=== PATIENT | female | born 1970 | race Caucasian/White ===

== ENCOUNTER → 2017-07-22 | Outpatient (CLI) | payer BC ==
--- NOTE | 2017-07-25 11:35 | MM ---
Reason for exam: screening (asymptomatic). Last mammogram was performed 1 year and 1 month ago. History: Benign stereotactic core biopsy of the left breast, 2014. Physical Findings: A clinical breast exam by your physician is recommended on an annual basis and results should be correlated with mammographic findings. MG 3D Screening Mammo W/Cad Bilateral CC and MLO view(s) were taken. Prior study comparison: July 01, 2016, bilateral MG screening mammo w CAD. May 06, 2015, mammogram, performed at [facility]. The breast tissue is heterogeneously dense. This may lower the sensitivity of mammography. Previous mammotome biopsy in the left breast. There is chronic nodularity bilaterally. There is no dominant lesion. No significant changes when compared with prior studies. ASSESSMENT: Benign, BI-RAD 2 RECOMMENDATION: Routine screening mammogram of both breasts in 1 year.
== END | disposition home or self-care (01) ==
LOC: RADMAMWWP 16:37
PROVIDERS: ATTEND Family Medicine
DX: Z12.31 Encounter for screening mammogram for malignant neoplasm of breast (principal)
CPT/HCPCS: 77063; 77067

== ENCOUNTER → 2017-08-30 | Outpatient (CLI) | payer BC ==
--- NOTE | 2017-08-31 01:05 | WWHP ---
[facility] - HISTORY AND PHYSICAL CHIEF COMPLAINT: The patient is here for her routine gynecologic exam. HPI: This is a 47-year-old, G2, P2, with an LMP of 08/12/2017. Her is status post vasectomy. Her menses are regular about every 24 to 28 days and are lasting 5 to 6 days. Her last pelvic exam was about 8 years ago. She does have a history of uterine fibroids and does have occasional pelvic pressure. She states she was diagnosed with fibroids about 8 years ago. PAST MEDICAL HISTORY: Anxiety, mitral valve prolapse with associated irregular heartbeat and elevated cholesterol. MEDICATIONS: 1. Paxil 20 mg daily. 2. Tenormin 25 mg daily. 3. Simvastatin 40 mg daily. ALLERGIES: No known drug allergies. PAST SURGICAL HISTORY: Left knee surgery in 2001 and 2015. PAST OB HISTORY: Two vaginal deliveries. PAST WARP WORKER HISTORY: She does have a history of uterine fibroids. She has no history of STDs. SOCIAL HISTORY: She smokes about 10 cigarettes per day. Has about 1 alcohol containing drink every 2 months and denies drug use. 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 FAMILY HISTORY: Sister has melanoma. She has a cousin who had ovarian, colon, and uterine cancer. She has an uncle who had pancreatic cancer and several people who have had strokes including maternal grandmother, maternal aunt and maternal grandfather. REVIEW OF SYSTEMS: She has gained about 10 pounds over the last year. She denies respiratory, cardiac or GI problems. PHYSICAL EXAM: Blood pressure 118/73, height 5 feet 9 inches, weight 180 pounds, BMI 28. Temperature 96.4, pulse 91. This is a well-developed, well-nourished white female who is alert and oriented x3, in no acute distress. HEENT is within normal limits. NECK: Supple without mass or thyromegaly. CHEST AND LUNGS: Clear to auscultation. HEART: Regular rate and rhythm. Breasts are without mass or discharge. Axillary exam is negative for adenopathy. BACK: Negative for CVA tenderness. Abdomen is mildly obese and there is firmness in the lower abdomen consistent with fibroid uterus. This is nontender. There are no other palpable masses. PELVIC EXAM: External genitalia appears normal without significant atrophy. The cervix is very posterior and is without lesions. There is no evidence of prolapse. BIMANUAL EXAM: There is a firm fullness in the pelvis consistent with at an enlarged fibroid uterus approximately 12 to 14 week size and this is greater on the right side. It is very firm, slightly irregular and nontender. There are no palpable adnexal masses or tenderness, however this is limited secondary to the uterine enlargement. Rectal exam is negative for mass or tenderness and is negative for occult blood. EXTREMITIES: Nontender. IMPRESSION: 1. A 47-year-old female with an enlarged uterus approximately 14 week size, greater on the right side. 2. Intermittent pelvic pressure and discomfort, probably secondary to the enlarged fibroid uterus. PLAN: 1. Pap smear was performed. 2. Self breast examination was discussed. 3. Mammogram was recently done on 07/22/2017, and this was benign. She will repeat this in 1 year. 4. Pelvic ultrasound will be scheduled. This will be done transabdominally and possibly transvaginally. 5. Obtain records from [facility] for her previous ultrasound so we can compare this with her current ultrasound. 6. We have discussed various options including hysterectomy. If her fibroid uterus is symptomatic or seems to be growing rapidly. 7. She will return in 1 year and p.r.n. MMODL / IJN: [id number] / DEMETRIS
== END | disposition home or self-care (01) ==
LOC: WWCWWP 15:11
PROVIDERS: ATTEND Obstetrics & Gynecology
DX: Z53.9 Procedure and treatment not carried out, unspecified reason (principal)

== ENCOUNTER → 2017-09-07 | Outpatient (CLI) | payer BC ==
--- NOTE | 2017-09-07 15:52 | US ---
EXAMINATION TYPE: US pelvic complete DATE OF EXAM: 09/07/2017 COMPARISON: NONE CLINICAL HISTORY: R10.2 PELVIC PAIN,N85.2 ENLARGED UTERUS,D25.9 LEIO. Pt states enlarged uterus on Dr 's examination, history of fibroids TECHNIQUE: Transabdominal (TA). Transabdominal sonographic images of the pelvis were acquired. Date of LMP: 08/12/2017 EXAM MEASUREMENTS: Uterus: 12.4 x 9.4 x 9.0 cm Endometrial Stripe: 0.9 cm Right Ovary: 2.3 x 1.8 x 3.2 cm Left Ovary: 2.7 x 2.7 x 2.0 cm 1. Uterus: Anteverted Enlarged, Heterogeneous with multiple (up to 3) probable fibroids. Largest a nterior/left uterus= 9.0 x 8.9 x 7.8 cm 2. Endometrium: wnl 3. Right Ovary: wnl, follicles 4. Left Ovary: wnl 5. Bilateral Adnexa: wnl 6. Posterior cul-de-sac: wnl IMPRESSION: 1. There appears to be a large 9 cm uterine fibroid with additional small fibroids within the uterus .
== END | disposition home or self-care (01) ==
LOC: RADUSWWP 15:25
PROVIDERS: ATTEND Obstetrics & Gynecology
DX: R10.2 Pelvic and perineal pain (principal); R68.89 Other general symptoms and signs
CPT/HCPCS: 76856

== ENCOUNTER → 2018-07-24 | Outpatient (CLI) | payer BC ==
--- NOTE | 2018-08-09 15:06 | MM ---
Reason for exam: screening (asymptomatic). Last mammogram was performed 1 year ago. History: Benign stereotactic core biopsy of the left breast, 2014. Physical Findings: A clinical breast exam by your physician is recommended on an annual basis and results should be correlated with mammographic findings. MG 3D Screening Mammo W/Cad Bilateral CC and MLO view(s) were taken. Prior study comparison: July 22, 2017, bilateral MG 3d screening mammo w/cad. July 01, 2016, bilateral MG screening mammo w CAD. The breast tissue is extremely dense which could obscure a lesion on mammography. There is chronic nodularity bilaterally. There is no dominant lesion. ASSESSMENT: Benign, BI-RAD 2 RECOMMENDATION: Routine screening mammogram of both breasts in 1 year.
== END | disposition home or self-care (01) ==
LOC: RADMAMWWP 15:55
PROVIDERS: ATTEND Family Medicine
DX: Z12.31 Encounter for screening mammogram for malignant neoplasm of breast (principal)
CPT/HCPCS: 77063; 77067

== ENCOUNTER → 2018-08-09 | Outpatient (CLI) | payer BC | END | disposition home or self-care (01) | LOC: RADMAMWWP 14:43 | PROVIDERS: ATTEND Family Medicine | DX: Z53.9 Procedure and treatment not carried out, unspecified reason (principal) ==

== ENCOUNTER → 2019-07-25 | Outpatient (CLI) | payer BC ==
--- NOTE | 2019-07-26 13:52 | MM ---
Reason for exam: screening (asymptomatic). Last mammogram was performed 1 year ago. History: Benign stereotactic core biopsy of the left breast, 2014. Physical Findings: A clinical breast exam by your physician is recommended on an annual basis and results should be correlated with mammographic findings. MG 3D Screening Mammo W/Cad Bilateral CC and MLO view(s) were taken. Prior study comparison: July 24, 2018, bilateral MG 3d screening mammo w/cad. July 22, 2017, bilateral MG 3d screening mammo w/cad. The breast tissue is heterogeneously dense. This may lower the sensitivity of mammography. Previous mammotome biopsy in the left breast. There is no discrete abnormality. No significant changes when compared with prior studies. ASSESSMENT: Benign, BI-RAD 2 RECOMMENDATION: Routine screening mammogram of both breasts in 1 year.
== END | disposition home or self-care (01) ==
LOC: RADMAMWWP 16:00
PROVIDERS: ATTEND Family Medicine
DX: Z12.31 Encounter for screening mammogram for malignant neoplasm of breast (principal)
CPT/HCPCS: 77063; 77067

== ENCOUNTER → 2021-01-01 | Outpatient (CLI) | payer BC | END | disposition home or self-care (01) | LOC: RADMAMWWP 13:47 | PROVIDERS: ATTEND Family Medicine | DX: Z12.31 Encounter for screening mammogram for malignant neoplasm of breast (principal) | CPT/HCPCS: 77063; 77067 ==

== ENCOUNTER → 2021-12-10 | Outpatient (CLI) | payer BC ==
--- NOTE | 2021-12-10 14:31 | US ---
EXAMINATION TYPE: US thyroid st tissue head/neck DATE OF EXAM: 12/10/2021 COMPARISON: NONE CLINICAL HISTORY: E04.1 SINGLE THYROID NODULE. Thyroid nodule. GLAND SIZE: Right Lobe: 5.3 x 1.7 x 1.9 cm Overall Parenchyma: heterogenous Left Lobe: 5.1 x 1.7 x 1.6 cm Overall Parenchyma: heterogeneous Isthmus Thickness: 0.31 cm NODULES RIGHT: # of nodules measured on right: 2 1. 0.7 X 0.7 x 0.5 cm, lower lateral, cystic or almost completely cystic, anechoic nodule, which is wider than tall, with smooth margins, with echogenic focus. Prior size: No prior 2. 1.1 X 1.0 x 0.9 cm, mid medial, solid or almost completely solid, isoechoic, heterogeneous nodul e, which is wider than tall, with smooth margins, without echogenic foci. Prior size: No prior LEFT: # of nodules measured on left: 1 Two additional hypoechoic <5 mm nodules visualized. 1. 0.7 X 0.4 x 0.3 cm, mid lateral, cystic or almost completely cystic, anechoic nodule, which is w ider than tall, with smooth margins, without echogenic foci. Prior size: No prior ISTHMUS: # of nodules measured in the isthmus: 1 1. 1.8 X 1.3 x 1.2 cm mixed cystic and solid nodule, which is wider than tall, with smooth margins, without echogenic foci. TR 3 Prior size: No prior *This nodule appears to be at the patient's palpable area of concern. Bilateral neck scanned, no evidence of lymphadenopathy. IMPRESSION: Mildly suspicious nodule isthmus of the thyroid which corresponds to the palpable region. Follow-up u ltrasound in one year is recommended. 2017 ACR TI-RADS LEVEL: TR-RADS 3 - Mildly Suspicious: Follow if > 1.5 cm, FNA if > 2.5 cm *Highest TI-RADS level nodule reported
== END | disposition home or self-care (01) ==
LOC: RADUSWWP 06:37
PROVIDERS: ATTEND Family Medicine
DX: E04.1 Nontoxic single thyroid nodule (principal)
CPT/HCPCS: 76536

== ENCOUNTER → 2021-12-22 | Outpatient (CLI) | payer BC | END | disposition home or self-care (01) | LOC: LABWHC1 11:52 | PROVIDERS: ATTEND Otolaryngology | DX: E04.1 Nontoxic single thyroid nodule (principal) | CPT/HCPCS: 36415; 84443 ==

== ENCOUNTER 2021-12-30 07:44 | Day surgery (SDC) | payer BC ==
[2021-12-30 08:23] VITALS: BP 136/79; PULSE 65; RESP 16; TEMP 98.4
--- NOTE | 2021-12-30 10:11 | US ---
ULTRASOUND GUIDED FNA THYROID BIOPSY: CLINICAL HISTORY: Thyroid nodule FINDINGS: The procedure was explained to the patient. The risks, complications, benefits and alternatives were discussed and any questions were answered. Informed consent was obtained. Patient was placed supin e on the ultrasound table and prepped and draped in the usual sterile fashion. Utilizing a 25 gauge needle, five passes were made into the requested isthmus nodule. Patient was stable throughout the procedure. Pathology is pending. All elements of maximal barrier technique were utilized. IMPRESSION: 1. Successful ultrasound guided FNA thyroid biopsy.
== END 2021-12-30 09:45 | disposition home or self-care (01) ==
LOC: RADPROMAIN 07:44
PROVIDERS: ATTEND Otolaryngology
DX: E04.1 Nontoxic single thyroid nodule (principal)
CPT/HCPCS: 10005; 88173; 88305

== ENCOUNTER → 2022-05-21 | Outpatient (CLI) | payer BC ==
--- NOTE | 2022-05-22 14:08 | CA ---
Transthoracic Echo Report Name: Melida Eason Age: 51 Gender: F : 1970 Exam Date: 05/21/2022 13:57 Exam Location: [place] [facility] Ht (in): 69 Wt (lb): 170 Ordering Physician: Jorge Rider MD Attending/Referring Phys: [id number], Tereso Director Cardiovascular Christina Bhandari CHILO Procedure CPT: Indications: I34.1 NONRHEUMATIC MITRAL (VALVE) PROLAPSE Cardiac Hx: Technical Quality: Fair Contrast 1: Total Dose (mL): Contrast 2: Total Dose (mL): MEASUREMENTS (Male / Female) Normal Values 2D ECHO LV Diastolic Diameter PLAX 4.8 cm 4.2 - 5.9 / 3.9 - 5.3 cm LV Systolic Diameter PLAX 3.0 cm IVS Diastolic Thickness 1.1 cm 0.6 - 1.0 / 0.6 - 0.9 cm LVPW Diastolic Thickness 1.2 cm 0.6 - 1.0 / 0.6 - 0.9 cm LV Relative Wall Thickness 0.5 RV Internal Dim ED PLAX 2.3 cm LA Volume 62.0 cm??? 18 - 58 / 22 - 52 cm??? M-MODE Aortic Root Diameter MM 2.8 cm LA Systolic Diameter MM 4.2 cm LA Ao Ratio MM 1.5 AV Cusp Separation MM 1.8 cm DOPPLER AV Peak Velocity 126.5 cm/s AV Peak Gradient 6.4 mmHg AV Mean Velocity 93.4 cm/s AV Mean Gradient 3.8 mmHg AV Velocity Time Integral 30.6 cm LVOT Peak Velocity 90.6 cm/s LVOT Peak Gradient 3.3 mmHg LVOT Velocity Time Integral 20.6 cm MV Area PHT 3.1 cm??? Mitral E Point Velocity 75.0 cm/s Mitral A Point Velocity 76.4 cm/s Mitral E to A Ratio 1.0 MV Deceleration Time 246.8 ms MV E' Velocity 7.8 cm/s Mitral E to MV E' Ratio 9.6 TR Peak Velocity 226.9 cm/s TR Peak Gradient 20.6 mmHg Right Ventricular Systolic Press 23.9 mmHg FINDINGS Left Ventricle Mildly increased left ventricular wall thickness. Normal left ventricular systolic function with no obvious regional wall motion abnormalities. Left ventricular ejection fraction is estimated at 55-60 %. Normal left ventricular diastolic filling pattern. Right Ventricle Normal right ventricular size and function. Right ventricular systolic pressure within normal limits. Right Atrium Normal right atrial size. Left Atrium Mildly increased left atrial volume. Mitral Valve Structurally normal mitral valve. No evidence for mitral valve prolapse. No mitral stenosis. Mild mitral regurgitation. Aortic Valve Trileaflet aortic valve. No aortic valve stenosis or regurgitation. Tricuspid Valve Structurally normal tricuspid valve. Mild tricuspid regurgitation. Pulmonic Valve Trace pulmonic regurgitation. Pericardium No pericardial effusion. Aorta Normal size aortic root and proximal ascending aorta. CONCLUSIONS Normal LV systolic function Mild mitral regurgitation Mild tricuspid regurgitation Previewed by: Dr. Heath Alcantar MD (Electronically Signed) Final Date: 22 May 2022 14:07
== END | disposition home or self-care (01) ==
LOC: RADECHMAIN 13:48
PROVIDERS: ATTEND Family Medicine
DX: I08.1 Rheumatic disorders of both mitral and tricuspid valves (principal)
CPT/HCPCS: 93306

== ENCOUNTER → 2022-11-04 | Outpatient (CLI) | payer BC ==
--- NOTE | 2022-11-04 16:24 | US ---
EXAMINATION TYPE: US thyroid st tissue head/neck DATE OF EXAM: 11/04/2022 COMPARISON: Ultrasound FNA 12/30/2021, thyroid ultrasound 12/10/2021 CLINICAL INDICATION: Female, 52 years old with history of E04.1 SINGLE THYROID NODULE; Follow up thyr oid nodules. Not on thyroid meds. GLAND SIZE: Right Lobe: 5.2 x 1.7 x 2.2 cm, previously 5.3 x 1.7 x 1.9 cm Overall Parenchyma: heterogenous Left Lobe: 4.8 x 1.6 x 1.9 cm, previously 5.1 x 1.7 x 1.6 cm Overall Parenchyma: heterogenous Isthmus Thickness: 0.4 cm, previously 0.3 cm NODULES RIGHT: # of nodules measured on right: 2 1. 0.9 X 1.0 x 0.6 cm, lower lateral, mixed cystic and solid, hypoechoic nodule, which is wider nimisha n tall, with ill-defined margins, without echogenic foci. TR3 Prior size: 0.7 x 0.7 x 0.5 cm 2. 1.0 X 0.9 x 0.8 cm, mid medial, solid or almost completely solid, isoechoic nodule, which is wid er than tall, with ill-defined margins, without echogenic foci. TR3 Prior size: 1.1 x 1.0 x 0.9 cm LEFT: # of nodules measured on left: 1 1. 0.7 X 0.7 x 0.7 cm, lower lateral, mixed cystic and solid, isoechoic nodule, which is wider than tall, with ill-defined margins, without echogenic foci. TR3 Prior size: 0.7 x 0.4 x 0.3 cm ISTHMUS: # of nodules measured in the isthmus: 1 1. 1.5 X 1.2 x 0.8 cm solid or almost completely solid, hypoechoic left lateral nodule, which is wi keyshawn than tall, with ill-defined margins, without echogenic foci. This is been previously biopsied. TR 4 Prior size: 1.8 x 1.3 x 1.2 cm Bilateral neck scanned, no evidence of lymphadenopathy. IMPRESSION: Stable small bilateral thyroid nodules from prior ultrasound. Largest within the isthmus has been pre viously biopsied 2021.
== END | disposition home or self-care (01) ==
LOC: RADUSWWP 15:32
PROVIDERS: ATTEND Otolaryngology
DX: E04.2 Nontoxic multinodular goiter (principal)
CPT/HCPCS: 76536

== ENCOUNTER → 2022-11-20 | Outpatient (CLI) | payer BC ==
[2022-11-20 13:36] LABS: ALT 23 U/L (8-44); AST 20 U/L (13-35); African American GFR (CKD) 98.2 (60.0-200.0); Albumin 4.6 g/dL (3.8-4.9); Albumin/Globulin Ratio 2.09 (1.60-3.17); Alkaline Phosphatase 102 U/L (41-126); BUN/Creat Ratio 13.25 Ratio (12.00-20.00); Blood Urea Nitrogen 10.6 mg/dL (9.0-27.0); Calcium 10.7 mg/dL (8.7-10.3); Carbon Dioxide 27.9 mmol/L (20.0-27.5); Chloride 101 mmol/L (96-109); Chol/HDL Ratio 3.41 Ratio; Globulin 2.2 g/dL (1.6-3.3); Glucose 98 mg/dL (70-110); LDL Cholesterol,Calculated 64.1 mg/dL (0.0-131.0); Non-African American GFR(CKD) 84.8 (60.0-200.0); Potassium 4.3 mmol/L (3.5-5.5); Sodium 138 mmol/L (135-145); Total Protein 6.8 g/dL (6.2-8.2)
== END | disposition home or self-care (01) ==
LOC: LABWHC1 09:04
PROVIDERS: ATTEND Family Medicine
DX: E78.5 Hyperlipidemia, unspecified (principal)
CPT/HCPCS: 36415; 80053; 80061

== ENCOUNTER → 2023-02-23 | Outpatient (CLI) | payer BC ==
--- NOTE | 2023-02-24 08:09 | MM ---
Reason for Exam: Screening (asymptomatic). Last screening mammogram was performed 12 month(s) ago. Patient History: Menarche at age 16. First Full-Term at age 23. 2014, Benign Stereotactic Core Biopsy on the left side. Risk Values: Araseli 5 year model risk: 1.0%. NCI Lifetime model risk: 8.4%. Prior Study Comparison: 07/25/2019 Bilateral Screening Mammogram, [facility]. 01/01/2021 Bilateral Screening Mammogram, [facility]. 02/22/2022 Bilateral MG 3D screening mammo w/cad, [facility]. Tissue Density: The breast tissue is heterogeneously dense. This may lower the sensitivity of mammography. Findings: Analyzed By CAD. There is a new asymmetric nodular density outer right breast seen best on the CC view 7.3 cm from the nipple. Additional views are recommended discharge include a spot compression cc view as well as a true lateral view. Overall Assessment: Incomplete: need additional imaging evaluation, BI-RAD 0 Management: Diagnostic Mammogram of the right breast. . Patient should continue monthly self-breast exams. A clinical breast exam by your physician is recommended on an annual basis. This exam should not preclude additional follow-up of suspicious palpable abnormalities. Note on Araseli scores and lifetime risk: 1. A Araseli score greater than 3% is considered moderate risk. If this is the case, consider specialist referral to assess eligibility for a risk reducing agent. 2. If overall lifetime risk for the development of breast cancer is 20% or higher, the patient may qualify for future screening with alternating mammogram and breast MRI. Electronically signed and approved by: Diego Duggan M.D. Radiologis
== END | disposition home or self-care (01) ==
LOC: RADMAMWWP 10:04
PROVIDERS: ATTEND Family Medicine
DX: Z12.31 Encounter for screening mammogram for malignant neoplasm of breast (principal)
CPT/HCPCS: 77063; 77067

== ENCOUNTER → 2023-02-28 | Outpatient (CLI) | payer BC ==
--- NOTE | 2023-02-28 14:46 | USB ---
Patient History: Menarche at age 16. First Full-Term at age 23. 2014, Benign Stereotactic Core Biopsy on the left side. Risk Values: Araseli 5 year model risk: 1.0%. NCI Lifetime model risk: 8.4%. Prior Study Comparison: 01/01/2021 Bilateral Screening Mammogram, [facility]. 02/22/2022 Bilateral MG 3D screening mammo w/cad, [facility]. 02/23/2023 Bilateral MG 3D screening mammo w/cad, [facility]. Findings: Imaged: Ultrasound imaging of: Area of concern, retroareolar region and axilla. Small anechoic cyst with posterior acoustic enhancement at 11:00 7 cm in double measuring 7 x 3 x 3 mm. Overall Assessment: Probably benign, BI-RAD 3 Management: Diagnostic Breast Ultrasound of the right breast in 6 months. A clinical breast exam by your physician is recommended on an annual basis and results should be correlated with mammographic findings. This exam should not preclude additional follow-up of suspicious palpable abnormalities. Results were given to the patient verbally at the time of exam. Electronically signed and approved by: Cam Lamar DO
--- NOTE | 2023-02-28 14:46 | MM ---
Reason for Exam: Additional evaluation requested from abnormal screening. Last screening mammogram was performed less than 1 month ago. Patient History: Menarche at age 16. First Full-Term at age 23. 2014, Benign Stereotactic Core Biopsy on the left side. Risk Values: Araseli 5 year model risk: 1.0%. NCI Lifetime model risk: 8.4%. Tissue Density: Right: The breast tissue is heterogeneously dense. This may lower the sensitivity of mammography. Findings: Analyzed By CAD. Persistent asymmetry 7.3 cm from the nipple the right lateral aspect measuring 7 mm.. Overall Assessment: Incomplete: need additional imaging evaluation, BI-RAD 0 Management: Diagnostic Breast Ultrasound of the right breast. Results were given to the patient verbally at the time of exam. Patient should continue monthly self-breast exams. A clinical breast exam by your physician is recommended on an annual basis. This exam should not preclude additional follow-up of suspicious palpable abnormalities. Note on Araseli scores and lifetime risk: 1. A Araseli score greater than 3% is considered moderate risk. If this is the case, consider specialist referral to assess eligibility for a risk reducing agent. 2. If overall lifetime risk for the development of breast cancer is 20% or higher, the patient may qualify for future screening with alternating mammogram and breast MRI. Electronically signed and approved by: Cam Lamar DO
== END | disposition home or self-care (01) ==
LOC: RADMAMWWP 08:43
PROVIDERS: ATTEND Family Medicine
DX: R92.8 Other abnormal and inconclusive findings on diagnostic imaging of breast (principal)
CPT/HCPCS: 77061; 77065

== ENCOUNTER → 2023-05-09 | Outpatient (CLI) | payer BC ==
--- NOTE | 2023-05-09 17:42 | US ---
EXAMINATION TYPE: US thyroid st tissue head/neck DATE OF EXAM: 05/09/2023 COMPARISON: US 2022 CLINICAL INDICATION: Female, 52 years old with history of E04.2 NONTOXIC MULTINODULAR GOITER; GLAND SIZE: Right Lobe: 4.9 x 1.9 x 1.7 cm Overall Parenchyma: heterogenous Left Lobe: 5.0 x 1.8 x 1.8 cm Overall Parenchyma: heterogenous Isthmus Thickness: 0.2 cm NODULES RIGHT: # of nodules measured on right: 1 1. 1.4 X 0.7 x 1.2 cm, mid, solid or almost completely solid, isoechoic nodule, which is wider than tall, with ill-defined margins, without echogenic foci. TR 3. Prior size: 1.0 x 0.8 x 0.9 cm LEFT: # of nodules measured on left: no definite nodules seen at this time ISTHMUS: # of nodules measured in the isthmus: 1 1. 1.8 X 0.7 x 1.2 cm solid or almost completely solid, hypoechoic nodule, which is wider than tall , with ill-defined margins, without echogenic foci. TR 4. Prior size: 1.5 x 0.8 x 1.2 cm Bilateral neck scanned, no evidence of lymphadenopathy. IMPRESSION: Marginal increase in size of right thyroid 1.4 cm TR 3 nodule and isthmus 1.8 cm TR 4 nodule. The ist hmus nodule has been previously biopsied. Follow-up ultrasound in one year is recommended.
== END | disposition home or self-care (01) ==
LOC: RADUSWWP 09:00
PROVIDERS: ATTEND Otolaryngology
DX: E04.2 Nontoxic multinodular goiter (principal)
CPT/HCPCS: 76536

== ENCOUNTER 2023-06-29 11:55 | Day surgery (SDC) | payer BC ==
[2023-06-29 13:05] VITALS: TEMP 98
[2023-06-29 15:09] VITALS: BP 130/82; PULSE 58; RESP 18
--- NOTE | 2023-06-29 17:38 | US ---
EXAMINATION TYPE: US FNA thyroid each add lesion DATE OF EXAM: 06/29/2023 2:20 PM CLINICAL INDICATION:Female, 53 years old with history of e04.2; , thyroid nodule. COMPARISON: 05/09/2023. ATTENDING: Dr. Cam Lamar PROCEDURE: Informed consent was obtained. The risks and benefits of the procedure were discussed with the patien t. The site was marked. Timeout procedure was performed Ultrasound imaging of the thyroid demonstrates a right thyroid nodule and a left isthmus nodule. The patient was prepped, draped in the usual sterile fashion, and locally anesthetized with 1% lidoca ine. Five fine needle aspiration were then performed with a 25 gauge needle of both the right thyroi d gland nodule and the left isthmus nodule. Samples were sent to the pathology department for further analysis. Patient tolerated the procedure without incident and was sent home in stable condition. IMPRESSION: Successful ultrasound guided fine needle aspiration of both the right thyroid gland nodule and the le ft isthmus nodule.
== END 2023-06-29 14:12 | disposition home or self-care (01) ==
LOC: RADPROMAIN 11:55
PROVIDERS: ATTEND Otolaryngology
DX: E04.2 Nontoxic multinodular goiter (principal)
CPT/HCPCS: 10005; 10006; 88173; 88305

== ENCOUNTER → 2023-08-19 | Outpatient (CLI) | payer BC ==
--- NOTE | 2023-08-19 09:19 | USB ---
Reason for Exam: Follow-up at short interval from prior study. Patient History: Menarche at age 16. First Full-Term at age 23. 2015, Benign Stereotactic Core Biopsy on the left side. Risk Values: Araseli 5 year model risk: 1.1%. NCI Lifetime model risk: 8.2%. Technique: Method: Targeted. Prior Study Comparison: 02/22/2022 Bilateral MG 3D screening mammo w/cad, [facility]. 02/23/2023 Bilateral MG 3D screening mammo w/cad, [facility]. 02/28/2023 Right MG 3D work up w/cad RT, [facility]. Findings: The upper outer quadrant of the right breast, the axilla of the right breast and the retroareolar of the right breast were scanned. Targeted ultrasound upper outer quadrant right breast 9:00 to 12:00 including scanning of the subareolar region and axilla. At the 11:00 position, 7 cm from the nipple, there is a stable, benign 8 x 6 x 2 mm cyst. At the 11:00 position, 4 cm from the nipple, now visualized is an oval, circumscribed, hypoechoic lesion measuring 8 x 5 x 4 mm, not seen previously. This should be reassessed at short interval follow-up. No other solid or cystic lesion or axillary lymphadenopathy. Overall Assessment: Probably benign, BI-RAD 3 Management: Diagnostic Mammogram of both breasts in 6 months. Diagnostic Breast Ultrasound of the right breast in 6 months. Bilateral mammograms in 6 months in time for the patient's annual exam. Additional six-month follow-up right breast ultrasound. A clinical breast exam by your physician is recommended on an annual basis and results should be correlated with mammographic findings. This exam should not preclude additional follow-up of suspicious palpable abnormalities. Results were given to the patient verbally at the time of exam. Electronically signed and approved by: Dm Smart M.D. Radiologist
== END | disposition home or self-care (01) ==
LOC: RADUSWWP 08:47
PROVIDERS: ATTEND Family Medicine
DX: R92.8 Other abnormal and inconclusive findings on diagnostic imaging of breast (principal)

== ENCOUNTER → 2023-08-25 | Day surgery (SDC) | payer BC ==
--- NOTE | 2023-08-31 09:38 | MM ---
Reason for Exam: Post Procedure Mammogram. Last screening mammogram was performed 6 month(s) ago. Patient History: Menarche at age 16. First Full-Term at age 23. 2014, Benign Stereotactic Core Biopsy on the left side. Risk Values: Araseli 5 year model risk: 1.1%. NCI Lifetime model risk: 8.2%. Prior Study Comparison: 02/22/2022 Bilateral MG 3D screening mammo w/cad, [facility]. 02/23/2023 Bilateral MG 3D screening mammo w/cad, [facility]. 02/28/2023 Right MG 3D work up w/cad RT, [facility]. Tissue Density: Right: The breast tissue is heterogeneously dense. This may lower the sensitivity of mammography. Pathology Description: Location: 11 o'clock. Marker Left Behind. Needle Type: Mammotome Cores: 5 Gauge: 13 The procedure of ultrasound guided core biopsy was explained to the patient. Benefits, alternatives, and risks were discussed. An informed consent was then obtained. The patient was placed in supine positioning for imaging and for the procedure. The overlying skin was prepped and draped in usual sterile fashion. Lidocaine was used as anesthetic into the skin and subcutaneous tissue up to area of concern in the 11:00 right breast. Note that this was an incidentally seen lesion on the patient's follow-up ultrasound that the patient requested be biopsied for peace of mind. In the event of expected benign biopsy results, ongoing six-month follow-up diagnostic mammogram will be recommended. Under ultrasound guidance, a 13-gauge vacuum-assisted mammotome Elite biopsy gun was used to obtain 5 core samples. Following this, a coil clip was left in lesion. The patient tolerated the procedure well without any immediate complication. The patient was kept in the radiology department for short stay after the procedure and then discharged home in stable condition. Postprocedure mammogram: The patient was transferred to mammography for physician ordered post procedure mammogram for clip placement verification. Post procedure mammogram shows coil clip in place. Impression: Successful, uncomplicated ultrasound guided core biopsy of small lesion 11:00 position 4 cm from the nipple, full pathology results to follow. Note that this was an incidentally seen lesion on the patient's follow-up ultrasound that the patient requested be biopsied for peace of mind. Benign results are expected; ongoing six-month follow-up diagnostic mammogram will be recommended for the original nodularity, in time for the patient's annual exam. Pathology Results: Result: Benign, Fibrocystic change. RIGHT BREAST, ELEVEN O'CLOCK 4 CM FROM NIPPLE, ULTRASOUND GUIDED NEEDLE CORE BIOPSY: Benign breast with fibrocystic changes including sclerosing adenosis and calcifications. Overall Assessment: Benign Assessment: MG diagnostic mammo RT wo CAD - Right: Benign, BI-RAD 2. Management: Diagnostic Mammogram of both breasts in 6 months. Electronically signed and approved by: Dm Smart M.D. Radiologist
== END ==
LOC: RADUSWWP 07:54
PROVIDERS: ATTEND Surgery
DX: N60.21 Fibroadenosis of right breast (principal)
CPT/HCPCS: 88305; 77065; 19083; A4648

== ENCOUNTER → 2023-09-02 | Outpatient (CLI) | payer BC ==
[2023-09-02 14:45] VITALS: BP 152/89; PULSE 63; RESP 16; TEMP 97.9
--- NOTE | 2023-09-02 14:52 | P.GSHP ---
History of Present Illness H&P Date: 09/02/23 Chief Complaint: fibrocystic breast disease Melida is a 53 year old female seen in consultation for DR. Jorge Rider regarding a right breast ultrasound guided core biopsy. She had a bilateral mammogram on 02-23-23, this led to a right breast ultrasound and biopsy on which was benign concordant. She is not complaining of any lumps masses or nodules of concern in either breast. She is not complaining of any recent breast trauma or infection. She is not complaining of any nipple discharge or skin changes. She has had a left core biopsy which was benign about 10 years ago. She has never had any open breast surgery. Caffeine: coke daily nicotine: 1/2 PPD for 30 years chocolate: occasional BCP: never used hormones: none Family history: sister: melanoma mother: SCC and basal cell cancer father: SCC and basal cell cancer Hormonal History: Menarche: 16 , breast fed: no, age at first : 23 menopause: 52 Surgical HIstory: ACL reconstruction left knee replacement Medical History: mitral valve prolapse thyroid nodule Plan Nicotine: Half a pack per day for 30 years Alcohol: Negative Drugs: Negative - Constitutional Constitutional: Reports sweats - EENT Eyes: denies blurred vision, denies pain Ears: deny: decreased hearing, tinnitus Ears, nose, mouth and throat: Denies headache, Denies sore throat - Breasts Breasts: bilateral: as per HPI - Cardiovascular Cardiovascular: Denies chest pain, Denies shortness of breath - Respiratory Respiratory: Denies cough, Denies 7 - Gastrointestinal Gastrointestinal: Denies abdominal pain, Denies diarrhea, Denies nausea, Denies vomiting - Genitourinary (Female) Genitourinary: Denies dysuria, Denies hematuria - Menstruation Menstruation: Reports postmenopausal - Musculoskeletal Comment: arthritis in her knees - Integumentary Integumentary: Denies pruritus, Denies rash - Neurological Neurological: Denies numbness, Denies weakness - Psychiatric Psychiatric: Denies anxiety, Denies depression - Endocrine Endocrine: Denies fatigue, Denies weight change - Hematologic/Lymphatic Comment: takes aspirin daily - Allergic/Immunologic Allergic/Immunologic: Reports seasonal allergies Past Medical History Past Medical History: Hyperlipidemia Additional Past Medical History / Comment(s): MITRAL VALVE PROLAPSE. History of Any Multi-Drug Resistant Organisms: None Reported Past Surgical History: Joint Replacement, Orthopedic Surgery Additional Past Surgical History / Comment(s): LEFT acl reconstruction LEFT TOTAL KNEE. Past Anesthesia/Blood Transfusion Reactions: No Reported Reaction Past Psychological History: Anxiety Smoking Status: Current every day smoker Past Alcohol Use History: None Reported Additional Past Alcohol Use History / Comment(s): SMOKE ABOUT .5 PPD, 25 YR Past Drug Use History: None Reported Medications and Allergies Home Medications Medication Instructions Recorded Confirmed Type PARoxetine [Paxil] 20 mg PO HS 01/02/15 09/02/23 History atenoloL [Tenormin] 25 mg PO QAM 01/02/15 09/02/23 History Aspirin 81 mg PO DAILY 06/25/21 09/02/23 History Multivitamins, Thera [Multivitamin 1 tab PO DAILY 06/25/21 09/02/23 History (formulary)] Hooper-3 Fatty Acids/Fish Oil [Fish 1 cap PO DAILY 06/25/21 09/02/23 History Oil 1,000 mg Softgel] Rosuvastatin [Crestor] 20 mg PO HS 06/25/21 09/02/23 History Allergies Allergy/AdvReac Type Severity Reaction Status Date / Time No Known Allergies Allergy Verified 08/19/23 13:43 Surgical - Exam Vital Signs Temp Pulse Resp BP Pulse Ox 97.9 F 63 16 152/89 99 09/02/23 14:33 09/02/23 14:33 09/02/23 14:33 09/02/23 14:33 09/02/23 14:33 - General no distress - Eyes normal ocular movement - Neck trachea midline - Respiratory normal respiratory effort - Cardiovascular Heart Sounds: normal: S1, S2 - Abdomen Abdomen: soft - Integumentary normal turgor - Neurologic no disoriented, no combative - Musculoskeletal normal gait - Psychiatric oriented to time, oriented to person, oriented to place, speech is normal, memory intact Breast Exam: BRA: 36B Inspection: Bilateral grade 1 ptosis Palpation: Right breast: Multi positional exam fibrocystic changes no dominant masses or nodules of concern; ecchymosis related to biopsy site no evidence of infection or hematoma Right axilla: No adenopathy of concern Left breast: Multi positional exam fibrocystic changes no dominant masses or nodules of concern Left axilla: No adenopathy of concern Results Mammogram and ultrasound results reviewed Assessment and Plan Assessment: Impression: Fibrocystic breast changes Recent core biopsy benign concordant Plan: Bilateral mammogram and right breast ultrasound in 6 months with physician exam at that time CC: Dr. Jorge Rider
== END ==
LOC: WWCWWP 13:11
PROVIDERS: ATTEND Surgery
DX: N60.11 Diffuse cystic mastopathy of right breast (principal); N60.12 Diffuse cystic mastopathy of left breast; E78.5 Hyperlipidemia, unspecified; F17.210 Nicotine dependence, cigarettes, uncomplicated; I34.1 Nonrheumatic mitral (valve) prolapse; F41.9 Anxiety disorder, unspecified; Z79.82 Long term (current) use of aspirin

== ENCOUNTER → 2024-03-19 | Outpatient (CLI) | payer BC ==
--- NOTE | 2024-03-19 08:05 | USB ---
Reason for Exam: Follow-up at short interval from prior study. Patient History: Menarche at age 16. First Full-Term at age 23. 08/25/2023, Benign US biopsy breast VAD RT on the right side. 2014, Benign Stereotactic Core Biopsy on the left side. Risk Values: Araseli 5 year model risk: 1.3%. NCI Lifetime model risk: 10.3%. Technique: Method: Targeted. Prior Study Comparison: 02/23/2023 Bilateral MG 3D screening mammo w/cad, [facility]. 02/28/2023 Right MG 3D work up w/cad RT, [facility]. 08/25/2023 Right MG diagnostic mammo RT wo CAD, [facility]. Findings: The upper section of the breast of the right breast was scanned. No solid or cystic masses are identified. Patient's biopsy clip is identified. Previous ultrasound abnormality is not evident. Overall Assessment: Benign, BI-RAD 2 Management: Screening Mammogram of both breasts in 1 year. A clinical breast exam by your physician is recommended on an annual basis and results should be correlated with mammographic findings. This exam should not preclude additional follow-up of suspicious palpable abnormalities. Results were given to the patient verbally at the time of exam. [facility], , 03/19/2024 8:01 AM. Electronically signed and approved by: Kumar Valadez D.O. Radiologis
--- NOTE | 2024-03-19 08:06 | MM ---
Reason for Exam: Follow-up at short interval from prior study. Last mammogram was performed 1 year(s) and 1 month(s) ago. Patient History: Menarche at age 16. First Full-Term at age 23. 08/25/2023, Benign US biopsy breast VAD RT on the right side. 2014, Benign Stereotactic Core Biopsy on the left side. Risk Values: Araseli 5 year model risk: 1.3%. NCI Lifetime model risk: 10.3%. Prior Study Comparison: 04/23/2014 Screening Mammogram, [facility]. 05/06/2015 Screening Mammogram, [facility]. 07/01/2016 Bilateral Screening Mammogram, [facility]. 07/22/2017 Bilateral Screening Mammogram, [facility]. 07/24/2018 Bilateral Screening Mammogram, [facility]. 07/25/2019 Bilateral Screening Mammogram, [facility]. 01/01/2021 Bilateral Screening Mammogram, [facility]. 02/22/2022 Bilateral MG 3D screening mammo w/cad, [facility]. 02/23/2023 Bilateral MG 3D screening mammo w/cad, [facility]. 02/28/2023 Right US breast RT, [facility]. 02/28/2023 Right MG 3D work up w/cad RT, [facility]. 08/19/2023 Right US breast limited RT, [facility]. 08/25/2023 Right MG diagnostic mammo RT wo CAD, [facility]. Tissue Density: The breasts are heterogeneously dense, which may obscure small masses. Findings: Analyzed By CAD. The pattern is symmetrical. Patient's recent biopsy clip is within the upper outer right breast. Adjacent to the surgical clip there may be some faint calcifications. Magnification views however do not well visualized these. No suspicious groups of microcalcifications, spiculated or lobular masses, architectural distortion or other secondary signs of malignancy are mammographically apparent. Overall Assessment: Benign, BI-RAD 2 Management: Screening Mammogram of both breasts in 1 year. A negative mammogram report should not preclude additional follow up of suspicious palpable abnormalities. Patient should continue monthly self breast exam. A clinical breast exam by your physician is recommended on an annual basis and results should be correlated with mammographic findings. Note on Araseli scores and lifetime risk: 1. A Araseli score greater than 3% is considered moderate risk. If this is the case, consider specialist referral to assess eligibility for a risk reducing agent. 2. If overall lifetime risk for the development of breast cancer is 20% or higher, the patient may qualify for future screening with alternating mammogram and breast MRI. [facility], , 03/19/2024 8:03 AM. Electronically signed and approved by: Kumar Valadez D.O. Radiologis
== END | disposition home or self-care (01) ==
LOC: RADMAMWWP 07:00
PROVIDERS: ATTEND Surgery
DX: R92.8 Other abnormal and inconclusive findings on diagnostic imaging of breast
CPT/HCPCS: 77062; 77066

== ENCOUNTER → 2024-03-29 | Outpatient (CLI) | payer BC ==
[2024-03-29 15:56] VITALS: BP 115/72; PULSE 62; RESP 17; TEMP 98.1
--- NOTE | 2024-03-29 16:06 | P.PN ---
Subjective Progress Note Date: 03/29/24 Principal diagnosis: fibrocystic breast disease fibrocystic breast disease Melida is a 53 year old female seen in consultation for DR. Jorge Rider regarding a right breast ultrasound guided core biopsy. She had a bilateral mammogram on 02-23-23, this led to a right breast ultrasound and biopsy on 08-19-23 which was benign concordant. She is not complaining of any lumps masses or nodules of concern in either breast. She is not complaining of any recent breast trauma or infection. She is not complaining of any nipple discharge or skin changes. She has had a left core biopsy which was benign about 10 years ago. She has never had any open breast surgery. Bilateral mammogram and right breast ultrasound on 03-19-2024 which was personally reviewed and felt to be benign BI-RADS 2. She is not complaining of any new lumps masses or nodules of concern in either breast. Caffeine: coke daily nicotine: 1/2 PPD for 30 years chocolate: occasional BCP: never used hormones: none Family history: sister: melanoma mother: SCC and basal cell cancer father: SCC and basal cell cancer Hormonal History: Menarche: 16 , breast fed: no, age at first : 23 menopause: 52 Surgical HIstory: ACL reconstruction left knee replacement Medical History: mitral valve prolapse thyroid nodule Plan Nicotine: Half a pack per day for 30 years Alcohol: Negative Drugs: Negative - Constitutional Constitutional: Reports sweats - EENT Eyes: denies blurred vision, denies pain Ears: deny: decreased hearing, tinnitus Ears, nose, mouth and throat: Denies headache, Denies sore throat - Breasts Breasts: bilateral: as per HPI - Cardiovascular Cardiovascular: Denies chest pain, Denies shortness of breath - Respiratory Respiratory: Denies cough, Denies 7 - Gastrointestinal Gastrointestinal: Denies abdominal pain, Denies diarrhea, Denies nausea, Denies vomiting - Genitourinary (Female) Genitourinary: Denies dysuria, Denies hematuria - Menstruation Menstruation: Reports postmenopausal - Musculoskeletal Comment: arthritis in her knees - Integumentary Integumentary: Denies pruritus, Denies rash - Neurological Neurological: Denies numbness, Denies weakness - Psychiatric Psychiatric: Denies anxiety, Denies depression - Endocrine Endocrine: Denies fatigue, Denies weight change - Hematologic/Lymphatic Comment: takes aspirin daily - Allergic/Immunologic Allergic/Immunologic: Reports seasonal allergies Past Medical History Past Medical History: Hyperlipidemia Additional Past Medical History / Comment(s): MITRAL VALVE PROLAPSE. History of Any Multi-Drug Resistant Organisms: None Reported Past Surgical History: Joint Replacement, Orthopedic Surgery Additional Past Surgical History / Comment(s): LEFT acl reconstruction LEFT TOTAL KNEE. Past Anesthesia/Blood Transfusion Reactions: No Reported Reaction Past Psychological History: Anxiety Smoking Status: Current every day smoker Past Alcohol Use History: None Reported Additional Past Alcohol Use History / Comment(s): SMOKE ABOUT .5 PPD, 25 YR Past Drug Use History: None Reported Medications and Allergies Home Medications Medication Instructions Recorded Confirmed Type PARoxetine [Paxil] 20 mg PO HS 01/02/15 09/02/23 History atenoloL [Tenormin] 25 mg PO QAM 01/02/15 09/02/23 History Aspirin 81 mg PO DAILY 06/25/21 09/02/23 History Multivitamins, Thera [Multivitamin 1 tab PO DAILY 06/25/21 09/02/23 History (formulary)] Qulin-3 Fatty Acids/Fish Oil [Fish 1 cap PO DAILY 06/25/21 09/02/23 History Oil 1,000 mg Softgel] Rosuvastatin [Crestor] 20 mg PO HS 06/25/21 09/02/23 History Allergies Allergy/AdvReac Type Severity Reaction Status Date / Time No Known Allergies Allergy Verified 08/19/23 13:43 Objective - Vital Signs Vital signs: Vital Signs Temp 98.1 F 03/29/24 15:54 Pulse 62 03/29/24 15:54 Resp 17 03/29/24 15:54 BP 115/72 03/29/24 15:54 Pulse Ox 98 03/29/24 15:54 FiO2 Intake & Output 03/28/24 03/29/24 03/29/24 18:59 06:59 18:59 Weight 74.843 kg - Constitutional General appearance: Present: cooperative - EENT Eyes: Present: EOMI ENT: Present: hearing grossly normal - Neck Neck: Present: normal ROM - Respiratory Respiratory: bilateral: CTA - Cardiovascular Rhythm: regular Heart sounds: normal: S1, S2 - Integumentary Integumentary: Present: normal turgor - Musculoskeletal Musculoskeletal: Present: gait normal - Psychiatric Psychiatric: Present: A&O x's 3, appropriate affect, intact judgment & insight - Additional findings Additional findings: Breast Exam: BRA: 36B Inspection: Bilateral grade 1 ptosis Palpation: Right breast: Multi positional exam fibrocystic changes no dominant masses or nodules of concern Right axilla: No adenopathy of concern Left breast: Multi positional exam fibrocystic changes no dominant masses or nodules of concern Left axilla: No adenopathy of concern Assessment and Plan Assessment: Impression: Fibrocystic breast changes bilateral mammogram and right breast ultrasound 03-19-24 BIRAD 2 personally reviewed and interpreted Plan: Bilateral mammogram and right breast ultrasound in March 2025 with appointment at at that time discussed lifestyle modifications; stop caffiene and stop smoking she is exposed to second hand smoke her smokes 1/PPD CC: Dr. Jorge Rider
== END ==
LOC: WWCWWP 15:44
PROVIDERS: ATTEND Surgery
DX: R92.8 Other abnormal and inconclusive findings on diagnostic imaging of breast (principal); N60.11 Diffuse cystic mastopathy of right breast; N60.12 Diffuse cystic mastopathy of left breast; F17.210 Nicotine dependence, cigarettes, uncomplicated

== ENCOUNTER 2024-07-02 11:06 | Day surgery (SDC) | payer BC ==
[2024-06-29 08:48] VITALS: BMI 23.6
[~2024-07-02 11:06] MED LIST: LIDOCAINE 1% (10MG/ML) FOR IV START INTRADERMA PRN
[2024-07-02] MEDS: LACTATED RINGERS 1,000 ML IV SCH (12:54)
[2024-07-02] MEDS: IV FLUID CONTINUATION 1,000 ML IV ONE ×2 (12:54→13:14)
[2024-07-02 12:57] VITALS: TEMP 98.1
[2024-07-02] MEDS ORDERED: PROPOFOL 10 MG/ML 20 ML VIAL IV ONE (13:15)
--- NOTE | 2024-07-02 13:32 | P.PCN ---
Date of Procedure: 07/02/24 Procedure(s) Performed: BRIEF HISTORY: Patient is a 54-year-old pleasant white female scheduled for an elective colonoscopy as a part of screening for colon cancer/positive Cologuard. PROCEDURE PERFORMED: Colonoscopy with biopsy and snare polypectomy. PREOPERATIVE DIAGNOSIS: Screening for colon cancer/positive Cologuard. IV sedation per Anesthesia. PROCEDURE: After informed consent was obtained, the patient, was brought into the endoscopy unit. IV sedation was administered by Anesthesia under continuous monitoring. Digital rectal examination was normal. Initially the Olympus CF-160 flexible video colonoscope was then inserted in the rectum, gradually advanced into the cecum without any difficulty. Careful examination was performed as the scope was gradually being withdrawn. Ileocecal valve and the appendiceal orifice were visualized and appeared normal. Prep was excellent. Mucosa of the cecum 3 mm sessile polyp that was removed by cold biopsy. Rest of the, ascending colon, transverse colon, normal. The descending colon a 5 mm polyp that was removed by cold snare polypectomy. Descending colon, sigmoid colon, and rectum appeared normal. Retroflexion was performed in the rectum and no lesions were seen. The patient tolerated the procedure well. IMPRESSION: 3 mm cecal polyp status post cold biopsy 5 mm descending colon polyp status post cold snare polypectomy Small internal hemorrhoids RECOMMENDATIONS: Findings of this examination were discussed with the patient as well as her family. She was advised to follow-up with the biopsy results. If the biopsy reveals adenoma she can have repeat colonoscopy in 5 years..
[2024-07-02 13:36] VITALS: RESP 16
[2024-07-02 13:50] VITALS: BP 123/62; PULSE 56
== END 2024-07-02 14:05 | disposition home or self-care (01) ==
LOC: ORWHC2ENDO 11:06
PROVIDERS: ATTEND Internal Medicine Gastroenterology
DX: D12.4 Benign neoplasm of descending colon (principal); I34.1 Nonrheumatic mitral (valve) prolapse; E78.5 Hyperlipidemia, unspecified; F17.210 Nicotine dependence, cigarettes, uncomplicated; Z79.899 Other long term (current) drug therapy; Z98.890 Other specified postprocedural states
CPT/HCPCS: 88305; 45380; 45385; J2704